=== PATIENT | male | born 1965 | race American Indian/Alaskan Native ===

== ENCOUNTER 2016-05-21 15:48 | Emergency (ER) | payer OTHER ==
[2016-05-21] MEDS ORDERED: NACL 0.9% 1000 ML 1,000 ML IV ONE (16:11)
[2016-05-21 16:45] LABS: Basophils % (Auto) 0.6 % (0.0-1.8); Eosinophils % (Auto) 5.9 % (0.0-4.3); Hematocrit 44.4 % (35.5-45.6); Hemoglobin 14.9 gm/dl (11.8-15.2); Mean Corpuscular HGB Conc 34 % (32-34); Mean Corpuscular Hemoglobin 31 pg (28-32); Mean Corpuscular Volume 94 fl (84-94); Platelet Count 207 K/mm3 (140-440); Red Blood Count 4.73 M/mm3 (3.65-5.03); Red Cell Distribution Width 12.7 % (13.2-15.2); White Blood Count 4.5 K/mm3 (4.5-11.0)
[2016-05-21 16:55] LABS: INR 1.01 (0.87-1.13)
[2016-05-21 16:56] LABS: Partial Thromboplastin Time 30.9 Sec. (24.2-36.6)
[2016-05-21 17:04] LABS: Alanine Aminotransferase 15 units/L (7-56); Albumin 4.4 g/dL (3.9-5); Albumin/Globulin Ratio 1.3 %; Alkaline Phosphatase 69 units/L (35-129); Anion Gap 15 mmol/L; BUN/Creatinine Ratio 14.28; Bilirubin,Total 0.4 mg/dL (0.1-1.2); Blood Urea Nitrogen 10 mg/dL (9-20); Calcium 8.8 mg/dL (8.4-10.2); Carbon Dioxide 26 mmol/L (22-30); Chloride 100.7 mmol/L (98-107); Glucose 87 mg/dL (75-100); Lipase 44 units/L (13-60); Potassium 3.7 mmol/L (3.6-5.0); Sodium 138 mmol/L (137-145); Total Protein 7.9 g/dL (6.3-8.2)
[2016-05-22 00:39] VITALS: BP 125/88
== END 2016-05-22 00:42 | disposition left against medical advice (07) ==
LOC: ED 15:48
DX: K92.1 Melena (principal); Z53.21 Procedure and treatment not carried out due to patient leaving prior to being seen by health care provider
CPT/HCPCS: 36415; 80053; 83690; 85025; 85610; 85730; 86850; 86900; 86901